=== PATIENT | female | born 1985 | race African-American/Black ===

== ENCOUNTER 2018-01-01 02:55 | Emergency (ER) | payer OTHER ==
[2018-01-01 03:09] VITALS: BP 142/91
--- NOTE | 2018-01-01 03:37 | EDM.PDOCBH ---
ED HPI GENERAL MEDICAL PROBLEM - General Chief Complaint: Behavioral/Psych Stated Complaint: CONFUSION/LAUGHING & NOT MAKING SENSE Time Seen by Provider: 01/01/18 03:09 Source of Information: Reports: Patient, Family History Limitations: Reports: No Limitations - History of Present Illness INITIAL COMMENTS - FREE TEXT/NARRATIVE: The patient was brought in by a friend and her because she woke up this evening hallucinating and not acting right. She got off work at 9pm. She at a candy from work that someone gave her and some [employer] and she went to bed. About an hour ago, she woke up with a night terror and hallucinations. She was confused when she woke up. She is not sure if the candy had something in it or what. Her feels she is exhausted. She has been working a lot lately. She will at times work 48 hours. She worked at one job until 6:30 yesterday morning and she slept a couple hours and went to another job at 10. She had been there all day. She denies any headache, fever, chills, cough, chest pain, shortness of breath, abdominal pain, nausea or vomiting. Her says this has happened before but the patient denies this. Onset: Sudden Duration: Minutes: Severity: Moderate Improves with: Reports: None Worsens with: Reports: None Associated Symptoms: Reports: No Other Symptoms - Related Data Allergies Allergy/AdvReac Type Severity Reaction Status Date / Time No Known Allergies Allergy Verified 01/01/18 03:05 Home Meds: Home Meds . [No Known Home Meds] 01/01/18 [History] Past Medical History - Past Health History Medical/Surgical History: Denies Medical/Surgical History [employer] History: Reports: , Spontaneous Endocrine/Metabolic History: Reports: Diabetes, Type II Social & Family History - Tobacco Use Smoking Status *Q: Never Smoker - Recreational Drug Use Recreational Drug Use: No - Living Situation & Occupation Living situation: Reports: Occupation: Employed ED ROS GENERAL - Review of Systems Review Of Systems: See Below Constitutional: Reports: No Symptoms HEENT: Reports: No Symptoms Respiratory: Reports: No Symptoms Cardiovascular: Reports: No Symptoms Endocrine: Reports: No Symptoms GI/Abdominal: Reports: No Symptoms : Reports: No Symptoms Musculoskeletal: Reports: No Symptoms Skin: Reports: No Symptoms Neurological: Reports: No Symptoms Psychiatric: Reports: Other (Hallucinations and nightmares) ED EXAM, BEHAVIORAL HEALTH - Physical Exam Exam: See Below Exam Limited By: No Limitations General Appearance: Alert, No Apparent Distress Ears: Normal External Exam Nose: Normal Inspection Head: Atraumatic, Normocephalic Neck: Normal Inspection Respiratory/Chest: No Respiratory Distress, Lungs Clear, Normal Breath Sounds Cardiovascular: Regular Rate, Rhythm, No Edema, No Murmur GI/Abdominal: Soft, Non-Tender, No Organomegaly, No Mass Back Exam: Normal Inspection Extremities: Normal Inspection Neurological: Alert, No Motor/Sensory Deficits, Oriented x 3 COURSE, BEHAVIORAL HEALTH COMP - Course Vital Signs: Last Vital Signs Temp 99.0 F 01/01/18 03:06 Pulse 112 H 01/01/18 03:06 Resp 16 01/01/18 03:06 BP 142/91 H 01/01/18 03:06 Pulse Ox 97 01/01/18 03:06 Orders, Labs, Meds: Active Orders 24 hr Category Date Time Status Cardiac Monitoring [RC] . DIRECTED Care 01/01/18 03:30 Active DRUG SCREEN, URINE [URCHEM] Stat Lab 01/01/18 03:35 Ordered diphenhydrAMINE [Benadryl] Med 01/01/18 04:39 Once 50 mg PO ONETIME ONE Laboratory Tests 01/01/18 01/01/18 01/01/18 Range/Units 03:35 03:46 03:46 WBC 5.72 (3.98-10.04) K/mm3 RBC 4.50 (3.98-5.22) M/mm3 Hgb 13.1 (11.2-15.7) gm/L Hct 38.4 (34.1-44.9) % MCV 85.3 (79.4-94.8) fl MCH 29.1 (25.6-32.2) pg MCHC 34.1 (32.2-35.5) g/dl RDW Std Deviation 41.8 (36.4-46.3) fL Plt Count 247 (182-369) K/mm3 MPV 9.4 (9.4-12.3) fl Neut % (Auto) 60.7 (34.0-71.1) % Lymph % (Auto) 26.7 (19.3-51.7) % [place] % (Auto) 10.8 (4.7-12.5) % Eos % (Auto) 1.4 (0.7-5.8) Baso % (Auto) 0.2 (0.1-1.2) % Neut # (Auto) 3.47 (1.56-6.13) K/mm3 Lymph # (Auto) 1.53 (1.18-3.74) K/mm3 [place] # (Auto) 0.62 H (0.24-0.36) K/mm3 Eos # (Auto) 0.08 (0.04-0.36) K/mm3 Baso # (Auto) 0.01 (0.01-0.08) K/mm3 Sodium 141 (136-145) mEq/L Potassium 3.6 (3.5-5.1) mEq/L Chloride 104 (98-107) mEq/L Carbon Dioxide 28 (21-32) mEq/L Anion Gap 12.6 (5-15) BUN 14 (7-18) mg/dL Creatinine 1.2 H (0.55-1.02) mg/dL Est Cr Clr Drug Dosing 52.25 mL/min Estimated GFR (MDRD) > 60 (>60) mL/min BUN/Creatinine Ratio 11.7 L (14-18) Glucose 123 H (74-106) mg/dL Calcium 8.7 (8.5-10.1) mg/dL Magnesium 1.7 L (1.8-2.4) mg/dl Total Bilirubin 0.5 (0.2-1.0) mg/dL AST 17 (15-37) U/L ALT 20 (14-59) U/L Alkaline Phosphatase 114 (46-116) U/L Total Protein 7.3 (6.4-8.2) g/dl Albumin 3.8 (3.4-5.0) g/dl Globulin 3.5 gm/dL Albumin/Globulin Ratio 1.1 (1-2) TSH 3rd Generation 1.219 (0.358-3.74) uIU/mL HCG, Qual (NEGATIVE) Urine Opiates Screen Negative (NEGATIVE) Ur Buprenorphine Scrn Negative (NEGATIVE) Ur Oxycodone Screen Negative (NEGATIVE) Urine Methadone Screen Negative (NEGATIVE) Ur Propoxyphene Screen Negative (NEGATIVE) Ur Barbiturates Screen Negative (NEGATIVE) Ur Tricyclics Screen Negative (NEGATIVE) Ur Phencyclidine Scrn Negative (NEGATIVE) Ur Amphetamine Screen Negative (NEGATIVE) U Methamphetamines Scrn Negative (NEGATIVE) U Benzodiazepines Scrn Negative (NEGATIVE) U Cocaine Metab Screen Negative (NEGATIVE) U Marijuana (THC) Screen Negative (NEGATIVE) Ethyl Alcohol 0.00 (0.00) gm% 01/01/18 Range/Units 03:46 WBC (3.98-10.04) K/mm3 RBC (3.98-5.22) M/mm3 Hgb (11.2-15.7) gm/L Hct (34.1-44.9) % MCV (79.4-94.8) fl MCH (25.6-32.2) pg MCHC (32.2-35.5) g/dl RDW Std Deviation (36.4-46.3) fL Plt Count (182-369) K/mm3 MPV (9.4-12.3) fl Neut % (Auto) (34.0-71.1) % Lymph % (Auto) (19.3-51.7) % [place] % (Auto) (4.7-12.5) % Eos % (Auto) (0.7-5.8) Baso % (Auto) (0.1-1.2) % Neut # (Auto) (1.56-6.13) K/mm3 Lymph # (Auto) (1.18-3.74) K/mm3 [place] # (Auto) (0.24-0.36) K/mm3 Eos # (Auto) (0.04-0.36) K/mm3 Baso # (Auto) (0.01-0.08) K/mm3 Sodium (136-145) mEq/L Potassium (3.5-5.1) mEq/L Chloride (98-107) mEq/L Carbon Dioxide (21-32) mEq/L Anion Gap (5-15) BUN (7-18) mg/dL Creatinine (0.55-1.02) mg/dL Est Cr Clr Drug Dosing mL/min Estimated GFR (MDRD) (>60) mL/min BUN/Creatinine Ratio (14-18) Glucose (74-106) mg/dL Calcium (8.5-10.1) mg/dL Magnesium (1.8-2.4) mg/dl Total Bilirubin (0.2-1.0) mg/dL AST (15-37) U/L ALT (14-59) U/L Alkaline Phosphatase (46-116) U/L Total Protein (6.4-8.2) g/dl Albumin (3.4-5.0) g/dl Globulin gm/dL Albumin/Globulin Ratio (1-2) TSH 3rd Generation (0.358-3.74) uIU/mL HCG, Qual Negative (NEGATIVE) Urine Opiates Screen (NEGATIVE) Ur Buprenorphine Scrn (NEGATIVE) Ur Oxycodone Screen (NEGATIVE) Urine Methadone Screen (NEGATIVE) Ur Propoxyphene Screen (NEGATIVE) Ur Barbiturates Screen (NEGATIVE) Ur Tricyclics Screen (NEGATIVE) Ur Phencyclidine Scrn (NEGATIVE) Ur Amphetamine Screen (NEGATIVE) U Methamphetamines Scrn (NEGATIVE) U Benzodiazepines Scrn (NEGATIVE) U Cocaine Metab Screen (NEGATIVE) U Marijuana (THC) Screen (NEGATIVE) Ethyl Alcohol (0.00) gm% Re-Assessment/Re-Exam: I have ordered labs and a urine drug screen. Her CBC looks good. Her creatinine was a little elevated at 1.2. Her HCG was negative. Her UDS was negative. Her ETOH was zero. I will give her a dose of benadryl here and give her a couple days off of work. Departure - Departure Time of Disposition: 04:45 Disposition: Home, Self-Care 01 Condition: Good Clinical Impression: Exhaustion delirium - Discharge Information Referrals: PCP,None [Primary Care Provider] - Jessica Herzog MD [Physician] - 1 Week Forms: ED Department Discharge, ED Return to Work/School Form Additional Instructions: Try to get some rest when you go home. Practice good sleep habits such as getting consistent sleep at night, sleeping in a dark quiet room. If you need some help falling asleep, try some benadryl or melatonin. Do not use these medicines all the time. You may get tolerant to them. Follow up with Dr Herzog in 1 week. Rest for the next 3 days. Please return if you are worse. - My Orders Last 24 Hours: My Active Orders 01/01/18 03:30 Cardiac Monitoring [RC] . DIRECTED 01/01/18 03:35 DRUG SCREEN, URINE [URCHEM] Stat 01/01/18 04:39 diphenhydrAMINE [Benadryl] 50 mg PO ONETIME ONE - Assessment/Plan Last 24 Hours: My Active Orders 01/01/18 03:30 Cardiac Monitoring [RC] . DIRECTED 01/01/18 03:35 DRUG SCREEN, URINE [URCHEM] Stat 01/01/18 04:39 diphenhydrAMINE [Benadryl] 50 mg PO ONETIME ONE
[2018-01-01] MEDS ORDERED: diphenhydrAMINE 50 MG Cap PO ONE (04:39)
== END 2018-01-01 04:55 | disposition home or self-care (01) ==
LOC: JD.ED 02:55
DX: F43.0 Acute stress reaction (principal); E11.9 Type 2 diabetes mellitus without complications
CPT/HCPCS: 36415; 80053; 80306; 83735; 84443; 84703; 85025; 99284; A9270; G0480

== ENCOUNTER 2021-10-05 19:31 | Emergency (ER) | payer OTHER ==
[2021-10-05 19:48] VITALS: BP 142/95; PULSE 93
[2021-10-05] MEDS ORDERED: Ketorolac 15 MG/ML SDV IM ONE (19:56)
[2021-10-05] MEDS ORDERED: Methocarbamol 500 MG Tab PO ONE (19:57)
== END 2021-10-05 20:57 | disposition home or self-care (01) ==
LOC: JD.ED 19:31
DX: S16.1XXA Strain of muscle, fascia and tendon at neck level, initial encounter (principal); E11.9 Type 2 diabetes mellitus without complications; X58.XXXA Exposure to other specified factors, initial encounter
CPT/HCPCS: 96372; 99283; A9270; J1885

== ENCOUNTER 2022-05-30 15:42 | Emergency (ER) | payer OTHER ==
[2022-05-30 20:35] VITALS: BP 123/85; PULSE 77
== END 2022-05-30 20:20 | disposition home or self-care (01) ==
LOC: JD.ED 15:42
DX: O26.851 Spotting complicating pregnancy, first trimester (principal); O24.111 Pre-existing type 2 diabetes mellitus, in pregnancy, first trimester; Z3A.01 Less than 8 weeks gestation of pregnancy
CPT/HCPCS: 36415; 76817; 76817-26; 80053; 81001; 84702; 85025; 86900; 86901; 99284